=== PATIENT | male | born 1965 | race African-American/Black ===

== ENCOUNTER 2018-03-07 09:17 | Inpatient (IN) | payer OTHER ==
--- NOTE | 2018-03-07 11:26 | HP ---
COWS - Scale Resting Pulse: 0= [place] 80 or Below Sweatin= Chills/Flushing Restless Observation: 3= Extraneous Movement Pupil Size: 1= Pupils >than Normal Bone or Joint Aches: 2= Severe Diffuse Aches Runny Nose/ Eye Tearin= Runny Nose/Eyes GI Upset > 30mins: 2= Nausea/Diarrhea Tremor Observation: 2= Slight Tremor Visible Yawning Observation: 2= >3x During Session Anxiety or Irritability: 2=Irritable/Anxious Goose Flesh Skin: 0=Smooth Skin COWS Score: 17 Admission [facility] Chief Complaint: this 52 years old male with heroin,cocaine and marijuana dependence,seeking detox,use suboxone street, withdrawal symptom,never been in detox before nicotine dependence depression insomnia weight loss Allergies/Adverse Reactions: Allergies Allergy/AdvReac Type Severity Reaction Status Date / Time No Known Allergies Allergy Verified 03/07/18 10:25 History of Present Illness: this 52 years old male with heroin,cocaine,marijuana dependence for detox as mentioned above - Ebola screening Have you traveled outside of the country in the last 21 days: No Have you had contact with anyone from an Ebola affected area: No Have you been sick,other than usual withdrawal symptoms: No Do you have a fever: No - Review of Systems Constitutional: Chills, Loss of Appetite, Night Sweats, Changes in sleep, Weight Stable, Unintentional Wgt. Loss EENT: reports: Tearing, Nose Congestion Respiratory: reports: No Symptoms reported Cardiac: reports: No Symptoms Reported GI: reports: Diarrhea, Nausea, Vomiting, Abdominal cramping : reports: No Symptoms Reported Musculoskeletal: reports: Back Pain, Joint Pain, Muscle Pain, Joint Stiffness Integumentary: reports: Dryness Neuro: reports: Headache, Tremors Endocrine: reports: No Symptoms Reported Hematology: reports: No Symptoms Reported Psychiatric: reports: No Sypmtoms Reported, Judgement Intact, Mood/Affect Appropiate, Depressed Other Systems: Reviewed and Negative Patient History - Patient Medical History Hx Anemia: No Hx Asthma: No Hx Chronic Obstructive Pulmonary Disease (COPD): No Hx Cancer: No Hx Cardiac Disorders: No Hx Hypertension: No Hx Hypercholesterolemia: No Hx Pacemaker: No HX Cerebrovascular Accident: No Hx Seizures: No Hx Dementia: No Hx Diabetes: No Hx Gastrointestinal Disorders: No Hx Liver Disease: No Hx Genitourinary Disorders: No Hx Sexually Transmitted Disorders: No Hx Renal Disease (ESRD): No Hx Thyroid Disease: No Hx Human Immunodeficiency Virus (HIV): No (last 2017 negative) Hx Hepatitis C: No Hx Depression: No Hx Suicide Attempt: No Hx Bipolar Disorder: No Hx Schizophrenia: No Other Medical History: no suicidal,no homicidal - Patient Surgical History Past Surgical History: No Hx Neurologic Surgery: No Hx Cataract Extraction: No Hx Cardiac Surgery: No Hx Lung Surgery: No Hx Breast Surgery: No Hx Breast Biopsy: No Hx Abdominal Surgery: No Hx Appendectomy: No Hx Cholecystectomy: No Hx Genitourinary Surgery: No Hx Section: No Hx Orthopedic Surgery: No Anesthesia Reaction: No - PPD History Previous Implant?: No Documented Results: Negative w/o proof Implanted On Prior [facility] Admission?: No PPD to be Administered?: Yes - Smoking Cessation Smoking history: Current every day smoker Have you smoked in the past 12 months: Yes Aproximately how many cigarettes per day: 20 Hx Chewing Tobacco Use: No Initiated information on smoking cessation: Yes 'Breaking Loose' booklet given: 03/07/18 - Substance & Tx. History Hx Alcohol Use: No Hx Substance Use: Yes Substance Use Type: Cocaine, Heroin, Marijuana Hx Substance Use Treatment: No - Substances Abused Heroin Route: Inhalation Frequency: Daily Amount used: 1 BUNDLE Age of first use: 31 Date of Last Use: 03/06/18 Cocaine Route: Smoking Frequency: Daily Amount used: 1 BUNDLE Age of first use: 32 Date of Last Use: 03/03/18 Marijuana/Hashish Route: Smoking Frequency: Daily Amount used: 1 OUNCE Age of first use: 16 Date of Last Use: 03/03/18 Family Disease History - Family Disease History Family History: Denies Admission Physical Exam S - Vital Signs Vital Signs: Vital Signs - 24 hr 03/07/18 09:35 Temperature 98.2 F Pulse Rate 62 Respiratory 18 Rate Blood Pressure 116/74 - Physical General Appearance: Yes: Moderate Distress, Tremorous, Irritable, Sweating, Anxious HEENTM: Yes: Normal ENT Inspection, LANG, Pharynx Normal Respiratory: Yes: Lungs Clear, Normal Breath Sounds, No Respiratory Distress Neck: Yes: Within Normal Limits, Supple, Trachea in good position Breast: Yes: Within Normal Limits Cardiology: Yes: Within Normal Limits, Regular Rhythm, Regular Rate, S1, S2 Abdominal: Yes: Within Normal Limits, Normal Bowel Sounds, Non Tender, Flat, Soft Genitourinary: Yes: Within Normal Limits Back: Yes: Muscle Spasm Musculoskeletal: Yes: Back pain, Joint Stiffness, Muscle Pain Extremities: Yes: Tremors Neurological: Yes: dba developer II-XII NML intact, Alert, Motor Strength 5/5 Integumentary: Yes: Dry Lymphatic: Yes: Within Normal Limits - Diagnostic (1) Opioid dependence with withdrawal Current Visit: Yes Status: Acute (2) Cocaine dependence Current Visit: Yes Status: Acute (3) Cannabis dependence Current Visit: Yes Status: Acute (4) Nicotine dependence Current Visit: Yes Status: Acute (5) Weight loss Current Visit: Yes Status: Acute (6) Dehydration Current Visit: Yes Status: Acute (7) Depression Current Visit: Yes Status: Acute Cleared for Admission [facility] - Detox or Rehab [facility] Level of Care: Medically Managed Detox Regimen/Protocol: Methadone [facility] Breath Alcohol Content Breath Alcohol Content: 0 Urine Drug Screen - Results Drug Screen Negative: No Urine Drug Screen Results: THC-Marijuana, STEPHANIA-Cocaine, OPI-Opiates
[2018-03-07] MEDS ORDERED: P-EPHED 60MG/TRIPROLIDI 2.5MG TABLET PO PRN (11:36)
[2018-03-07] MEDS ORDERED: guaiFENesin/D-METHORPHAN HB 10 ML UNIT-DOSE CUPS PO PRN (11:36)
[2018-03-07] MEDS ORDERED: LOPERAMIDE HCL 2 MG CAPSULE PO PRN (11:36)
[2018-03-07] MEDS ORDERED: MAGNESIUM CITRATE 300 ML BOTTLE PO PRN (11:36)
[2018-03-07] MEDS ORDERED: MENTHOL/PHENOL 1 EACH UD MM PRN (11:36)
[2018-03-07] MEDS ORDERED: ACETAMINOPHEN 325 MG TABLET (FP) PO PRN (11:36)
[2018-03-07] MEDS ORDERED: IBUPROFEN 400 MG TABLET (FP) PO PRN (11:36)
[2018-03-07] MEDS ORDERED: MAGNESIUM HYDROX 2400MG/30ML ORAL SUSPENSION 30 ML CUP PO PRN (11:36)
[2018-03-07] MEDS ORDERED: MAG HYDROX/AL HYDROX/SIMETH 30 ML UNIT-DOSE CUP PO PRN (11:36)
[2018-03-07] MEDS ORDERED: NICOTINE POLACRILEX 2 MG GUM BUC PRN (11:39)
[2018-03-07] MEDS ORDERED: hydrOXYzine PAMOATE 25 MG CAPSULE (FP) PO PRN (11:39)
[2018-03-07] MEDS ORDERED: METHADONE HCL 10 MG TABLET (FOR DETOX USE ONLY) PO ONE ×2 (13:05→23:00)
[2018-03-07] MEDS: diazePAM 5 MG TABLET PO PRN ×2 (13:53→22:09)
[2018-03-07] MEDS: NICOTINE 21 MG/24 HOURS TOPICAL PATCH TD SCH (13:56)
--- NOTE | 2018-03-07 16:04 | EKG ---
Test Reason : Blood Pressure : / mmHG Vent. Rate : 065 BPM Atrial Rate : 065 BPM P-R Int : 158 ms QRS Dur : 086 ms QT Int : 414 ms P-R-T Axes : 077 083 065 degrees QTc Int : 430 ms NORMAL SINUS RHYTHM NORMAL ECG NO PREVIOUS ECGS AVAILABLE Confirmed by Joe Forrester MD ([id number]) on 03/07/2018 4:03:58 PM Referred By: Confirmed By:Joe Forrester MD
[2018-03-07 18:44] LABS: URINE APPEARANCE CLEAR; URINE BILIRUBIN NEGATIVE (<2.0 mg/dL); URINE COLOR YELLOW; URINE GLUCOSE (UA) 1+ (NEGATIVE); URINE KETONE NEGATIVE (NEGATIVE); URINE LEUK ESTERASE NEGATIVE (NEGATIVE); URINE NITRITE NEGATIVE (NEGATIVE); URINE PROTEIN NEGATIVE (NEGATIVE); URINE UROBILINOGEN NEGATIVE mg/dL (0.2-1.0)
[2018-03-07] MEDS ORDERED: MELATONIN 5 MG TABLETS PO PRN (22:00)
[2018-03-07] MEDS: cloNIDine HCL 0.1 MG TABLET PO SCH (22:09)
[2018-03-07] MEDS: THIAMINE HCL 100 MG TABLET (FP) PO SCH (22:10)
[2018-03-08] MEDS ORDERED: METHADONE HCL 10 MG TABLET (FOR DETOX USE ONLY) PO ONE (10:00)
[2018-03-08] MEDS: PRENATAL VITAMINS W/ FOLIC ACID TABLET (FP) PO SCH (10:23)
[2018-03-08] MEDS: NICOTINE 21 MG/24 HOURS TOPICAL PATCH TD SCH (10:24)
[2018-03-08] MEDS: cloNIDine HCL 0.1 MG TABLET PO SCH ×2 (10:24→22:12)
[2018-03-08 10:33] LABS: HEMATOCRIT 40.5 % (35.4-49); HEMOGLOBIN 12.7 GM/dL (11.7-16.9); MCH 27.9 pg (25.7-33.7); MCHC 31.3 g/dl (32.0-35.9); MEAN CELL VOLUME 88.9 fl (80-96); MEAN PLT VOLUME 9.8 fl (7.5-11.1); PLATELET COUNT 237 K/MM3 (134-434); RBC 4.56 M/mm3 (4.00-5.60); RDW 15.5 % (11.9-15.9); WHITE BLOOD COUNT 8.6 K/mm3 (4.0-10.0)
[2018-03-08 11:18] LABS: ALBUMIN 3.2 g/dl (3.4-5.0); ALK PHOS 64 U/L (45-117); ANION GAP 9 MMOL/L (8-16); BILIRUBIN,TOTAL 0.9 mg/dL (0.2-1); BLOOD UREA NITROGEN 17 mg/dL (7-18); CALCIUM 8.1 mg/dL (8.5-10.1); CHLORIDE 110 mmol/L (98-107); CO2 27 mmol/L (21-32); GLUCOSE,RANDOM 85 mg/dL (74-106); POTASSIUM 4.3 mmol/L (3.5-5.1); SGOT/AST 25 U/L (15-37); SGPT/ALT 17 U/L (13-61); SODIUM 145 mmol/L (136-145); TOT PROT 6.1 g/dl (6.4-8.2)
[2018-03-08] MEDS ORDERED: FLU VACCINE QUAD 60 MCG/0.5 ML (MDV 18-19) IM ONE (12:00)
--- NOTE | 2018-03-08 14:14 | PN ---
BHS COWS - Scale Resting Pulse: 0= [place] 80 or Below Sweatin=Flushed/Facial Moisture Restless Observation: 0= Sits Still Pupil Size: 2= Moderately Dilated Bone or Joint Aches: 2= Severe Diffuse Aches Runny Nose/ Eye Tearin= None GI Upset > 30mins: 1= Stomach Cramp Tremor Observation of Outstretched Hands: 2= Slight Tremor Visible Yawning Observation: 0= None Anxiety or Irritability: 1=Feels Anxious/Irritable Goose Flesh Skin: 0=Smooth Skin COWS Score: 10 BHS Progress Note (SOAP) Subjective: PATIENT PRESENTS WITH SHAKES, SWEATINESS, AND BODY ACHES. Objective: 03/08/18 14:12 Vital Signs Temperature 97.5 F L 03/08/18 13:26 Pulse Rate 82 03/08/18 13:26 Respiratory Rate 18 03/08/18 13:26 Blood Pressure 129/74 03/08/18 13:26 O2 Sat by Pulse Oximetry (%) Laboratory Tests 03/07/18 03/07/18 03/08/18 11:50 16:30 06:00 WBC 8.6 RBC 4.56 Hgb 12.7 Hct 40.5 MCV 88.9 MCH 27.9 MCHC 31.3 L RDW 15.5 Plt Count 237 MPV 9.8 Sodium Potassium Chloride Carbon Dioxide Anion Gap BUN Creatinine Creat Clearance w eGFR Random Glucose Calcium Total Bilirubin AST ALT Alkaline Phosphatase Total Protein Albumin Urine Color Yellow Urine Appearance Clear Urine pH 6.0 Ur Specific [place] 1.021 Urine Protein Negative Urine Glucose (UA) 1+ H Urine Ketones Negative Urine Blood Negative Urine Nitrite Negative Urine Bilirubin Negative Urine Urobilinogen Negative Ur Leukocyte Esterase Negative RPR Titer HIV 1&2 Antibody Screen Negative HIV P24 Antigen Negative 03/08/18 03/08/18 06:00 06:00 WBC RBC Hgb Hct MCV MCH MCHC RDW Plt Count MPV Sodium 145 Potassium 4.3 Chloride 110 H Carbon Dioxide 27 Anion Gap 9 BUN 17 Creatinine 1.0 Creat Clearance w eGFR > 60 Random Glucose 85 Calcium 8.1 L Total Bilirubin 0.9 AST 25 ALT 17 Alkaline Phosphatase 64 Total Protein 6.1 L Albumin 3.2 L Urine Color Urine Appearance Urine pH Ur Specific [place] Urine Protein Urine Glucose (UA) Urine Ketones Urine Blood Urine Nitrite Urine Bilirubin Urine Urobilinogen Ur Leukocyte Esterase RPR Titer Nonreactive HIV 1&2 Antibody Screen HIV P24 Antigen ALERT AND ORIENTED SKIN WARM WITH FACIAL MOISTURE CAR SIS2 RESP CTA BL GI SOFT, BS+, NT,ND EXT MILD TREMORS Assessment: 03/08/18 14:13 WITHDRAWAL SYNDROME Plan: CONTINUE DETOX ORDERED ENCOURAGE ORAL FLUIDS CONTINUE TO MONITOR CLINICALLY
--- NOTE | 2018-03-08 15:03 | CONSULT ---
[facility] Psychiatric Consult - Data Date of interview: 03/08/18 Admission source: [facility] Identifying data: First admission to [facility] for this 52 y/o AA male self- referred for detoxification treatment (heroin,cocaine,cannabis),Admitted to [address] [place] [address].Liza is single without dependents,domiciled,unemployed and supported on Public Assistance. Substance Abuse History: Confirmed by the patient in this interview.Details in current [facility] report as follows : Smoking history: Current every day smoker. Have you smoked in the past 12 months: Yes. Aproximately how many cigarettes per day: 20. Hx Chewing Tobacco Use: No. Initiated information on smoking cessation: Yes. 'Breaking Loose' booklet given: 03/07/18. - Substance & Tx. History. Hx Alcohol Use: No. Hx Substance Use: Yes. Substance Use Type: Cocaine, Heroin, Marijuana. Hx Substance Use Treatment: No. - Substances Abused. Heroin. Route: Inhalation. Frequency: Daily. Amount used: 1 BUNDLE. Age of first use: 31. Date of Last Use: 03/06/18. Cocaine. Route : Smoking. Frequency: Daily. Amount used: 1 BUNDLE. Age of first use: 32. Date of Last Use: 03/03/18. Marijuana/Hashish. Route: Smoking. Frequency: Daily. Amount used: 1 OUNCE. Age of first use: 16. Date of Last Use: 03/03/18 Medical History: Patient endorses good general health. Psychiatric History: Patient denies. Physical/Sexual Abuse/Trauma History: Patient denies. Additional Comment: Urine Drug Screen Results: THC-Marijuana, STEPHANIA-Cocaine, OPI- Opiates.Noted. Mental Status Exam - Mental Status Exam Alert and Oriented to: Time, Place, Person Cognitive Function: Good Patient Appearance: Well Groomed Mood: Withdrawn Affect: Mood Congruent, Constricted Patient Behavior: Fatigued, Appropriate, Cooperative Speech Pattern: Clear, Appropriate Voice Loudness: Normal Thought Process: Intact, Goal Oriented Thought Disorder: Not Present Hallucinations: Denies Suicidal Ideation: Denies Insight/Judgement: Poor Sleep: Well Appetite: Good Muscle strength/Tone: Normal Gait/Station: Normal Psychiatric Findings - Problem List ([place] 1, 2,3) (1) Opioid dependence with withdrawal Current Visit: Yes Status: Acute (2) Cannabis dependence Current Visit: Yes Status: Acute (3) Cocaine dependence Current Visit: Yes Status: Acute (4) Nicotine dependence Current Visit: Yes Status: Acute - Initial Treatment Plan Initial Treatment Plan: Psychoeducation.Sleep hygiene discussed with patient.Detoxification.Supportive + group therapy.AA meetings and recreational therapy.Patient is encouraged to join activities and participate in groups.Observation.
[2018-03-08] MEDS: THIAMINE HCL 100 MG TABLET (FP) PO SCH (22:12)
[2018-03-08] MEDS: CYCLOBENZAPRINE HCL 10 MG TABLET (FP) PO PRN (22:12)
[2018-03-08] MEDS: diazePAM 5 MG TABLET PO PRN (22:12)
[2018-03-09] MEDS ORDERED: METHADONE HCL 5 MG TABLET (FOR DETOX USE ONLY) PO ONE (10:00)
[2018-03-09] MEDS: PRENATAL VITAMINS W/ FOLIC ACID TABLET (FP) PO SCH (10:43)
[2018-03-09] MEDS: cloNIDine HCL 0.1 MG TABLET PO SCH ×2 (10:43→22:24)
[2018-03-09] MEDS: NICOTINE 21 MG/24 HOURS TOPICAL PATCH TD SCH (10:43)
--- NOTE | 2018-03-09 12:28 | PN ---
S COWS - Scale Resting Pulse: 0= [place] 80 or Below Sweatin= Chills/Flushing Restless Observation: 1= Difficult to Sit Still Pupil Size: 2= Moderately Dilated Bone or Joint Aches: 2= Severe Diffuse Aches Runny Nose/ Eye Tearin= Nasal Congestion GI Upset > 30mins: 0= None Tremor Observation of Outstretched Hands: 0= None Yawning Observation: 1= 1-2x During Session Anxiety or Irritability: 0= None Goose Flesh Skin: 3=Piloerection COWS Score: 11 S Progress Note (SOAP) Subjective: PATIENT HAS CHILLS, RUNNY NOSE, AND BODY ACHES. Objective: 03/09/18 12:26 Vital Signs Temperature 98.7 F 03/09/18 06:17 Pulse Rate 66 03/09/18 06:17 Respiratory Rate 18 03/09/18 06:30 Blood Pressure 95/55 L 03/09/18 06:17 O2 Sat by Pulse Oximetry (%) Laboratory Tests 03/07/18 03/07/18 03/08/18 11:50 16:30 06:00 WBC 8.6 RBC 4.56 Hgb 12.7 Hct 40.5 MCV 88.9 MCH 27.9 MCHC 31.3 L RDW 15.5 Plt Count 237 MPV 9.8 Sodium Potassium Chloride Carbon Dioxide Anion Gap BUN Creatinine Creat Clearance w eGFR Random Glucose Calcium Total Bilirubin AST ALT Alkaline Phosphatase Total Protein Albumin Urine Color Yellow Urine Appearance Clear Urine pH 6.0 Ur Specific [place] 1.021 Urine Protein Negative Urine Glucose (UA) 1+ H Urine Ketones Negative Urine Blood Negative Urine Nitrite Negative Urine Bilirubin Negative Urine Urobilinogen Negative Ur Leukocyte Esterase Negative RPR Titer HIV 1&2 Antibody Screen Negative HIV P24 Antigen Negative 03/08/18 03/08/18 06:00 06:00 WBC RBC Hgb Hct MCV MCH MCHC RDW Plt Count MPV Sodium 145 Potassium 4.3 Chloride 110 H Carbon Dioxide 27 Anion Gap 9 BUN 17 Creatinine 1.0 Creat Clearance w eGFR > 60 Random Glucose 85 Calcium 8.1 L Total Bilirubin 0.9 AST 25 ALT 17 Alkaline Phosphatase 64 Total Protein 6.1 L Albumin 3.2 L Urine Color Urine Appearance Urine pH Ur Specific [place] Urine Protein Urine Glucose (UA) Urine Ketones Urine Blood Urine Nitrite Urine Bilirubin Urine Urobilinogen Ur Leukocyte Esterase RPR Titer Nonreactive HIV 1&2 Antibody Screen HIV P24 Antigen SKIN: + GOOSEFLESH ALERT AND ORIENTED CAR S1S2 RESP CTA BL GI SOFT, BS+ NT EXT FULL ROM Assessment: 03/09/18 12:27 WITHDRAWAL SYNDROME Plan: CONTINUE DETOX ENCOURAGE ORAL FLUIDS CONTINUE TO MONITOR
[2018-03-09] MEDS: diazePAM 5 MG TABLET PO PRN (22:23)
[2018-03-09] MEDS: THIAMINE HCL 100 MG TABLET (FP) PO SCH (22:23)
[2018-03-09] MEDS: CYCLOBENZAPRINE HCL 10 MG TABLET (FP) PO PRN (22:23)
[2018-03-10] MEDS ORDERED: METHADONE HCL 5 MG TABLET (FOR DETOX USE ONLY) PO ONE (10:00)
[2018-03-10] MEDS: cloNIDine HCL 0.1 MG TABLET PO SCH ×2 (10:51→22:17)
[2018-03-10] MEDS: PRENATAL VITAMINS W/ FOLIC ACID TABLET (FP) PO SCH (10:51)
[2018-03-10] MEDS: diazePAM 5 MG TABLET PO PRN (10:51)
[2018-03-10] MEDS: NICOTINE 21 MG/24 HOURS TOPICAL PATCH TD SCH (10:52)
--- NOTE | 2018-03-10 14:23 | PN ---
BHS Progress Note (SOAP) Subjective: Patient asleep Objective: 03/10/18 14:22 Last Vital Signs Temp Pulse Resp BP Pulse Ox 96.6 F L 88 18 100/65 03/10/18 10:08 03/10/18 10:08 03/10/18 10:08 03/10/18 10:08 Laboratory Tests 03/07/18 03/07/18 03/08/18 11:50 16:30 06:00 WBC 8.6 RBC 4.56 Hgb 12.7 Hct 40.5 MCV 88.9 MCH 27.9 MCHC 31.3 L RDW 15.5 Plt Count 237 MPV 9.8 Sodium Potassium Chloride Carbon Dioxide Anion Gap BUN Creatinine Creat Clearance w eGFR Random Glucose Calcium Total Bilirubin AST ALT Alkaline Phosphatase Total Protein Albumin Urine Color Yellow Urine Appearance Clear Urine pH 6.0 Ur Specific [place] 1.021 Urine Protein Negative Urine Glucose (UA) 1+ H Urine Ketones Negative Urine Blood Negative Urine Nitrite Negative Urine Bilirubin Negative Urine Urobilinogen Negative Ur Leukocyte Esterase Negative RPR Titer HIV 1&2 Antibody Screen Negative HIV P24 Antigen Negative 03/08/18 03/08/18 06:00 06:00 WBC RBC Hgb Hct MCV MCH MCHC RDW Plt Count MPV Sodium 145 Potassium 4.3 Chloride 110 H Carbon Dioxide 27 Anion Gap 9 BUN 17 Creatinine 1.0 Creat Clearance w eGFR > 60 Random Glucose 85 Calcium 8.1 L Total Bilirubin 0.9 AST 25 ALT 17 Alkaline Phosphatase 64 Total Protein 6.1 L Albumin 3.2 L Urine Color Urine Appearance Urine pH Ur Specific [place] Urine Protein Urine Glucose (UA) Urine Ketones Urine Blood Urine Nitrite Urine Bilirubin Urine Urobilinogen Ur Leukocyte Esterase RPR Titer Nonreactive HIV 1&2 Antibody Screen HIV P24 Antigen Labs reviewed Assessment: 03/10/18 14:22 Withdrawal sxs Plan: Continue detox
[2018-03-10] MEDS: CYCLOBENZAPRINE HCL 10 MG TABLET (FP) PO PRN (22:17)
[2018-03-10] MEDS: THIAMINE HCL 100 MG TABLET (FP) PO SCH (22:17)
[2018-03-11] MEDS ORDERED: METHADONE HCL 10 MG TABLET (FOR DETOX USE ONLY) PO ONE (10:00)
[2018-03-11] MEDS: PRENATAL VITAMINS W/ FOLIC ACID TABLET (FP) PO SCH (10:48)
[2018-03-11] MEDS: cloNIDine HCL 0.1 MG TABLET PO SCH ×2 (10:49→22:50)
[2018-03-11] MEDS: NICOTINE 21 MG/24 HOURS TOPICAL PATCH TD SCH (10:49)
--- NOTE | 2018-03-11 14:26 | PN ---
[facility] Progress Note Note: Vital Signs Temperature 98.0 F 03/11/18 09:29 Pulse Rate 83 03/11/18 09:29 Respiratory Rate 18 03/11/18 09:29 Blood Pressure 115/68 03/11/18 09:29 O2 Sat by Pulse Oximetry (%) Laboratory Last Values WBC 8.6 K/mm3 (4.0-10.0) 03/08/18 06:00 RBC 4.56 M/mm3 (4.00-5.60) 03/08/18 06:00 Hgb 12.7 GM/dL (11.7-16.9) 03/08/18 06:00 Hct 40.5 % (35.4-49) 03/08/18 06:00 MCV 88.9 fl (80-96) 03/08/18 06:00 MCH 27.9 pg (25.7-33.7) 03/08/18 06:00 MCHC 31.3 g/dl (32.0-35.9) L 03/08/18 06:00 RDW 15.5 % (11.9-15.9) 03/08/18 06:00 Plt Count 237 K/MM3 (134-434) 03/08/18 06:00 MPV 9.8 fl (7.5-11.1) 03/08/18 06:00 Sodium 145 mmol/L (136-145) 03/08/18 06:00 Potassium 4.3 mmol/L (3.5-5.1) 03/08/18 06:00 Chloride 110 mmol/L (98-107) H 03/08/18 06:00 Carbon Dioxide 27 mmol/L (21-32) 03/08/18 06:00 Anion Gap 9 MMOL/L (8-16) 03/08/18 06:00 BUN 17 mg/dL (7-18) 03/08/18 06:00 Creatinine 1.0 mg/dL (0.55-1.3) 03/08/18 06:00 Creat Clearance w eGFR > 60 (>60) 03/08/18 06:00 Random Glucose 85 mg/dL (74-106) 03/08/18 06:00 Calcium 8.1 mg/dL (8.5-10.1) L 03/08/18 06:00 Total Bilirubin 0.9 mg/dL (0.2-1) 03/08/18 06:00 AST 25 U/L (15-37) 03/08/18 06:00 ALT 17 U/L (13-61) 03/08/18 06:00 Alkaline Phosphatase 64 U/L (45-117) 03/08/18 06:00 Total Protein 6.1 g/dl (6.4-8.2) L 03/08/18 06:00 Albumin 3.2 g/dl (3.4-5.0) L 03/08/18 06:00 Urine Color Yellow 03/07/18 16:30 Urine Appearance Clear 03/07/18 16:30 Urine pH 6.0 (5.0-8.0) 03/07/18 16:30 Ur Specific [place] 1.021 (1.001-1.035) 03/07/18 16:30 Urine Protein Negative (NEGATIVE) 03/07/18 16:30 Urine Glucose (UA) 1+ (NEGATIVE) H 03/07/18 16:30 Urine Ketones Negative (NEGATIVE) 03/07/18 16:30 Urine Blood Negative (NEGATIVE) 03/07/18 16:30 Urine Nitrite Negative (NEGATIVE) 03/07/18 16:30 Urine Bilirubin Negative (<2.0 mg/dL) 03/07/18 16:30 Urine Urobilinogen Negative mg/dL (0.2-1.0) 03/07/18 16:30 Ur Leukocyte Esterase Negative (NEGATIVE) 03/07/18 16:30 RPR Titer Nonreactive (NONREACTIVE) 03/08/18 06:00 HIV 1&2 Antibody Screen Negative 03/07/18 11:50 HIV P24 Antigen Negative 03/07/18 11:50 c/o of diarrhea, anxious, sweats, chills Aox3 no distress no adventitious breath sounds ABD non-tender non distended ful ROM ambulating in the unit withdrawal sx increase PO fluids immodium prn continue detox continue to monitor
[2018-03-11] MEDS: THIAMINE HCL 100 MG TABLET (FP) PO SCH (22:49)
[2018-03-11] MEDS: CYCLOBENZAPRINE HCL 10 MG TABLET (FP) PO PRN (22:50)
[2018-03-12] MEDS ORDERED: METHADONE HCL 5 MG TABLET (FOR DETOX USE ONLY) PO ONE (06:00)
[2018-03-12 09:32] VITALS: BP 99/66; PULSE 71; TEMP 96.8
--- NOTE | 2018-03-12 11:39 | DS ---
[facility] Detox Discharge Summary Admission Date: 03/07/18 Discharge Date: 03/12/18 - History Present History: Alcohol Dependence, Cannabis Dependence, Cocaine Dependence Pertinent Past History: Denies - Physical Exam Results Vital Signs: Vital Signs Temperature 96.8 F L 03/12/18 09:31 Pulse Rate 71 03/12/18 09:31 Respiratory Rate 18 03/12/18 09:31 Blood Pressure 99/66 03/12/18 09:31 O2 Sat by Pulse Oximetry (%) Pertinent Admission Physical Exam Findings: Withdrawal sx Laboratory Last Values WBC 8.6 K/mm3 (4.0-10.0) 03/08/18 06:00 RBC 4.56 M/mm3 (4.00-5.60) 03/08/18 06:00 Hgb 12.7 GM/dL (11.7-16.9) 03/08/18 06:00 Hct 40.5 % (35.4-49) 03/08/18 06:00 MCV 88.9 fl (80-96) 03/08/18 06:00 MCH 27.9 pg (25.7-33.7) 03/08/18 06:00 MCHC 31.3 g/dl (32.0-35.9) L 03/08/18 06:00 RDW 15.5 % (11.9-15.9) 03/08/18 06:00 Plt Count 237 K/MM3 (134-434) 03/08/18 06:00 MPV 9.8 fl (7.5-11.1) 03/08/18 06:00 Sodium 145 mmol/L (136-145) 03/08/18 06:00 Potassium 4.3 mmol/L (3.5-5.1) 03/08/18 06:00 Chloride 110 mmol/L (98-107) H 03/08/18 06:00 Carbon Dioxide 27 mmol/L (21-32) 03/08/18 06:00 Anion Gap 9 MMOL/L (8-16) 03/08/18 06:00 BUN 17 mg/dL (7-18) 03/08/18 06:00 Creatinine 1.0 mg/dL (0.55-1.3) 03/08/18 06:00 Creat Clearance w eGFR > 60 (>60) 03/08/18 06:00 Random Glucose 85 mg/dL (74-106) 03/08/18 06:00 Calcium 8.1 mg/dL (8.5-10.1) L 03/08/18 06:00 Total Bilirubin 0.9 mg/dL (0.2-1) 03/08/18 06:00 AST 25 U/L (15-37) 03/08/18 06:00 ALT 17 U/L (13-61) 03/08/18 06:00 Alkaline Phosphatase 64 U/L (45-117) 03/08/18 06:00 Total Protein 6.1 g/dl (6.4-8.2) L 03/08/18 06:00 Albumin 3.2 g/dl (3.4-5.0) L 03/08/18 06:00 Urine Color Yellow 03/07/18 16:30 Urine Appearance Clear 03/07/18 16:30 Urine pH 6.0 (5.0-8.0) 03/07/18 16:30 Ur Specific [place] 1.021 (1.001-1.035) 03/07/18 16:30 Urine Protein Negative (NEGATIVE) 03/07/18 16:30 Urine Glucose (UA) 1+ (NEGATIVE) H 03/07/18 16:30 Urine Ketones Negative (NEGATIVE) 03/07/18 16:30 Urine Blood Negative (NEGATIVE) 03/07/18 16:30 Urine Nitrite Negative (NEGATIVE) 03/07/18 16:30 Urine Bilirubin Negative (<2.0 mg/dL) 03/07/18 16:30 Urine Urobilinogen Negative mg/dL (0.2-1.0) 03/07/18 16:30 Ur Leukocyte Esterase Negative (NEGATIVE) 03/07/18 16:30 RPR Titer Nonreactive (NONREACTIVE) 03/08/18 06:00 HIV 1&2 Antibody Screen Negative 03/07/18 11:50 HIV P24 Antigen Negative 03/07/18 11:50 Labs noted - Treatment Hospital Course: Detox Protocol Followed, Detoxed Safely, Responded well, Discharged Condition Good - Medication Discharge Medications: Ambulatory Orders NK [No Known Home Medication] 03/07/18 - Diagnosis (1) Opioid dependence with withdrawal Current Visit: Yes Status: Acute (2) Cannabis dependence Current Visit: Yes Status: Chronic (3) Cocaine dependence Current Visit: Yes Status: Chronic (4) Depression Current Visit: Yes Status: Chronic (5) Nicotine dependence Current Visit: Yes Status: Chronic Qualifiers: Nicotine product type: cigarettes Substance use status: uncomplicated Qualified Code(s): F17.210 - Nicotine dependence, cigarettes, uncomplicated - AMA Did Patient Leave Against Medical Advice: No
== END 2018-03-12 12:12 | disposition home or self-care (01) | DRG 773 ==
LOC: YASAS 09:17 → Y3N 12:08
PROC: HZ2ZZZZ Detoxification Services for Substance Abuse Treatment (ICD-10-PCS; principal; 2018-03-07)
DX: F11.23 Opioid dependence with withdrawal (principal); F14.20 Cocaine dependence, uncomplicated; F12.20 Cannabis dependence, uncomplicated; F17.210 Nicotine dependence, cigarettes, uncomplicated; F32.9 Major depressive disorder, single episode, unspecified; E86.0 Dehydration; Z68.21 Body mass index [BMI] 21.0-21.9, adult
CPT/HCPCS: 36415; 80053; 81003; 85027; 86593; 87389; 90688; 93005; 93010; G0008; J0735